=== PATIENT | male | born 1975 | race Caucasian/White ===

== ENCOUNTER 2016-05-10 12:31 | Emergency (ER) | payer SELFPAY ==
[2016-05-10] MEDS ORDERED: HYDROmorphone* 1 MG/ML 1 ML SYR IV ONE (12:51)
[2016-05-10] MEDS ORDERED: LORazepam INJ* 2 MG/ML 1 ML VIAL IV PUSH ONE (12:52)
[2016-05-10] MEDS: NS 0.9% 1000 ML* 2,000 ML IV ONE (12:58)
[2016-05-10 13:16] LABS: Hematocrit 45 % (42-52); Hemoglobin 14.6 g/dl (14.0-18.0); Mean Corpuscular HGB Conc 33 g/dl (31-36); Mean Corpuscular Hemoglobin 27 pg (27-31); Mean Corpuscular Volume 84 fL (80-94); Mean Platelet Volume 10 um3 (7.4-10.4); Red Blood Count 5.36 10^6/ul (4.0-5.4); Red Cell Distribution Width 15 % (10.5-15); White Blood Count 12.9 10^3/ul (3.5-10.8)
[2016-05-10 13:36] LABS: Albumin 4.4 g/dL (3.2-5.2); C Reactive Protein 5.87 mg/L (< 5.00); Calcium 9.6 mg/dL (8.6-10.3); EGFR African American 115.7 (>60); Globulin 3.2 g/dL (2-4); Potassium 4.5 mmol/L (3.5-5.0); Total Bilirubin 0.3 mg/dL (0.2-1.0); Total Protein 7.6 g/dL (6.4-8.9)
--- NOTE | 2016-05-10 14:28 | ED ---
Zoey Hurtado Anna, scribed for Caroline Mcmanus MD on 05/10/16 at 1302 . GI/ HPI - HPI Summary HPI Summary: Patient is a 40 y/o male coming to [facility] presenting with the sudden onset of constant nausea, vomiting and diarrhea that began at 1030 this morning. He additionally has chest pain. Per his fiance, the patient has had a similar episode before. He denies a Hx of diabetes. His history is significant for asthma, GERD, and cyclic vomiting. - History of Current Complaint Chief Complaint: EDAbdPain Stated Complaint: CHEST/ABD PAIN,NAUSEA,VOMITING,DIARRHEA Hx Obtained From: Patient Onset/Duration: Started Hours Ago Timing: Constant Pain Intensity: 10 - /10 Associated Signs and Symptoms: Positive: Vomiting, Diarrhea, Chest Pain - Additional Pertinent History Primary Care Physician: [id number] - Allergy/Home Medications Allergies/Adverse Reactions: Allergies Allergy/AdvReac Type Severity Reaction Status Date / Time Penicillins Allergy Hives Verified 05/10/16 12:33 PMH/Surg Hx/FS Hx/Imm Hx Endocrine/Hematology History: Denies: Hx Diabetes, Hx Sickle Cell Disease Cardiovascular History: Denies: Hx Hypertension, Other Cardiovascular Problems/Disorders Respiratory History: Reports: Hx Asthma - HAS INHLALERS WILL BRING IN GI History: Reports: Hx Gastroesophageal Reflux Disease, Hx Irritable Bowel, Other GI Disorders - cyclic vomiting History: Denies: Hx Renal Disease, Other Problems/Disorders Musculoskeletal History: Denies: Other Musculoskeletal History Sensory History: Reports: Hx Contacts or Glasses Denies: Hx Hearing Aid Opthamlomology History: Reports: Hx Contacts or Glasses Neurological History: Denies: Hx Headaches, Other Neuro Impairments/Disorders Psychiatric History: Reports: Hx Anxiety, Hx Depression - Surgical History Surgery Procedure, Year, and Place: CARPAL TUNNEL LEFT WRIST - 2012 [facility] [place] Hx Anesthesia Reactions: No Infectious Disease History: No Infectious Disease History: Denies: Traveled Outside the [place] in Last 30 Days - Family History Known Family History: Positive: Cardiac Disease, Diabetes - Social History Lives: With Family - with luisitoe Alcohol Use: None Substance Use Type: Reports: Marijuana - last used a week ago Hx Tobacco Use: No Smoking Status (MU): Former Smoker Review of Systems Positive: Chest Pain Positive: Vomiting, Diarrhea, Nausea All Other Systems Reviewed And Are Negative: Yes Physical Exam - Summary Physical Exam Summary: Initially too uncomfortable to examine. Lungs were clear and heart was RRR. See below for PE on re-eval. Triage Information Reviewed: Yes Vital Signs On Initial Exam: Initial Vitals Temp Pulse Resp BP Pulse Ox 95.6 F 92 18 140/115 100 05/10/16 12:33 05/10/16 12:33 05/10/16 12:33 05/10/16 12:33 05/10/16 12:33 Vital Signs Reviewed: Yes Appearance: Positive: Well-Appearing, No Pain Distress Skin: Positive: Warm, Skin Color Reflects Adequate Perfusion, Dry Eyes: Positive: EOMI, RUBIN ENT: Positive: Pharynx normal, TMs normal Neck: Positive: Supple, Nontender Respiratory/Lung Sounds: Positive: Clear to Auscultation, Breath Sounds Present. Negative: Rales, Rhonchi, Wheezes Cardiovascular: Positive: RRR. Negative: Murmur, Rub, Other - gallops Abdomen Description: Positive: Nontender, Soft. Negative: Distended, Guarding, Other: - rebound Bowel Sounds: Positive: Present Musculoskeletal: Positive: Strength/ROM Intact. Negative: Edema Left, Edema Right Neurological: Positive: Normal, Sensory/Motor Intact, Alert, Oriented to Person Place, Time, CN Intact II-III Psychiatric: Positive: Affect/Mood Appropriate Diagnostics - Vital Signs Vital Signs Temp Pulse Resp BP Pulse Ox 05/10/16 12:33 95.6 F 92 18 140/115 100 - Laboratory Lab Results: Lab Results 05/10/16 Range/Units 12:50 POC Glucose (mg/dL) 168 H (74-106) mg/dL Result Diagrams: 05/10/16 12:54 05/10/16 12:54 Lab Statement: Any lab studies that have been ordered have been reviewed, and results considered in the medical decision making process. - EKG 1249 Cardiac Rate: NL - 78 bpm EKG Rhythm: Sinus Rhythm ST Segment: Normal Ectopy: None EKG Interpretation: A lot of artifact 1317 Cardiac Rate: NL - 74 bpm EKG Rhythm: Sinus Rhythm ST Segment: Normal Ectopy: None Re-Evaluation - Re-Evaluation First Eval Re-Evaluation Time: 14:41 Change: Improved Comment: Patient is feeling much better. GIGU Course/Dx - Course Course Of Treatment: 40 yo male with intractable vomiting this am given one dose of dilaudid and ativan with resolution of symptoms - Diagnoses Provider Diagnoses: Intractable vomiting Discharge - Discharge Plan Condition: Stable Disposition: HOME Prescriptions: Metoclopramide TAB* [Reglan TAB*] 10 mg PO Q8H PRN #14 tab PRN Reason: Nausea Patient Education Materials: Metoclopramide (By mouth), Acute Nausea and Vomiting (ED) Referrals: Jose Elias Ansari MD [Primary Care Provider] - Additional Instructions: Follow up with primary care physician within 48 hours. Return to the emergency department for changing or worsening symptoms. The documentation as recorded by the Zoey garcía Anna accurately reflects the service I personally performed and the decisions made by , Caroline Mcmanus MD.
[2016-05-10 14:54] VITALS: BP 111/70
== END 2016-05-10 14:54 | disposition home or self-care (01) ==
LOC: ED 12:31
DX: R11.2 Nausea with vomiting, unspecified (principal); R19.7 Diarrhea, unspecified; R07.9 Chest pain, unspecified; Z87.891 Personal history of nicotine dependence
CPT/HCPCS: 36415; 80053; 83690; 84484; 85025; 86140; 93005; 96374; 96375; 99282; J1170; J2060

== ENCOUNTER 2016-05-10 19:48 | Emergency (ER) | payer SELFPAY ==
[2016-05-10 20:04] VITALS: BP 139/117
== END 2016-05-10 21:44 | disposition left against medical advice (07) ==
LOC: ED 19:48
DX: R11.2 Nausea with vomiting, unspecified (principal); Z53.21 Procedure and treatment not carried out due to patient leaving prior to being seen by health care provider
CPT/HCPCS: 93005

== ENCOUNTER 2016-05-12 14:10 | Emergency (ER) | payer MEDICAID ==
[2016-05-12] MEDS ORDERED: NS 0.9% 1000 ML* 3,000 ML IV ONE (14:18)
[2016-05-12] MEDS ORDERED: LORazepam INJ* 2 MG/ML 1 ML VIAL IV PUSH ONE ×2 (14:18)
[2016-05-12] MEDS ORDERED: Ketorolac INJ* 30 MG/ML 1 ML VIAL IV ONE ×2 (14:18)
[2016-05-12 14:42] LABS: Hematocrit 44 % (42-52); Hemoglobin 14.4 g/dl (14.0-18.0); Mean Corpuscular HGB Conc 33 g/dl (31-36); Mean Corpuscular Hemoglobin 27 pg (27-31); Mean Corpuscular Volume 83 fL (80-94); Mean Platelet Volume 10 um3 (7.4-10.4); Red Blood Count 5.25 10^6/ul (4.0-5.4); Red Cell Distribution Width 14 % (10.5-15); White Blood Count 10.6 10^3/ul (3.5-10.8)
[2016-05-12 14:43] LABS: Add Diff/Slide Review? Slide Review Added; Comments Flag Yes
[2016-05-12] MEDS: NS 0.9% 1000 ML* 3,000 ML IV ONE (14:48)
[2016-05-12 14:57] LABS: ALT 21 U/L (7-52); AST 17 U/L (13-39); Albumin 4.2 g/dL (3.2-5.2); Alkaline Phosphatase 47 U/L (34-104); Anion Gap 10 mmol/L (2-11); BUN/Creatinine Ratio 11.2 (8-20); Blood Urea Nitrogen 11 mg/dL (6-24); C Reactive Protein 5.17 mg/L (< 5.00); CO2 Carbon Dioxide 20 mmol/L (22-32); Calcium 9.2 mg/dL (8.6-10.3); Chloride 104 mmol/L (101-111); EGFR African American 108.9 (>60); EGFR Non-African American 84.7 (>60); Glucose 109 mg/dL (70-100); Lipase < 10 U/L (11.0-82.0); Potassium 3.2 mmol/L (3.5-5.0); Sodium 134 mmol/L (133-145); Total Protein 7.2 g/dL (6.4-8.9)
[2016-05-12 15:30] LABS: Magnesium 1.7 mg/dL (1.9-2.7)
[2016-05-12] MEDS ORDERED: Potassium Chlor TAB* 20 MEQ TAB.ER PO ONE ×2 (15:35)
[2016-05-12] MEDS ORDERED: Magnesium Oxide TAB* 400 MG PO ONE ×2 (15:36)
[2016-05-12] MEDS ORDERED: HYDROmorphone INJ* 1 MG/ML CARPUJECT SYRINGE IV ONE ×2 (15:40)
[2016-05-12] MEDS ORDERED: KCL 20 MEQ/100 ML IVPREMIX* 20 MEQ/100 ML BAG IV SCH (16:00)
--- NOTE | 2016-05-12 16:04 | ED ---
Emilia Hurtado Janilya, scribed for Caroline Mcmanus MD on 05/12/16 at 1447 . Abdominal Pain/Male - HPI Summary HPI Summary: A 40 y/o male was [facility]IB[facility] to [facility] [place] presenting w/ a gradual onset of constant diffuse abd pain for the past couple days. Nothing makes the pain better or worse. Pain severity rated 10/10. In addition, pt also reports vomiting, diarrhea, nausea. - History of Current Complaint Chief Complaint: EDAbdPain Stated Complaint: NAUSEA/VOMITING /DIARRHEA Time Seen by Provider: 05/12/16 14:17 Hx Obtained From: Patient Onset/Duration: Gradual Onset, Lasting Days, Still Present Timing: Constant Severity Initially: Moderate Severity Currently: Moderate Pain Intensity: 10 Pain Scale Used: 0-10 Numeric Location: Diffuse Radiates: No Character: Dull Aggravating Factor(s): Nothing Alleviating Factor(s): Nothing - Allergies/Home Medications Allergies/Adverse Reactions: Allergies Allergy/AdvReac Type Severity Reaction Status Date / Time Penicillins Allergy Hives Verified 05/10/16 12:33 PMH/Surg Hx/FS Hx/Imm Hx Previously Healthy: Yes Endocrine/Hematology History: Denies: Hx Diabetes, Hx Sickle Cell Disease Cardiovascular History: Denies: Hx Hypertension, Other Cardiovascular Problems/Disorders Respiratory History: Reports: Hx Asthma - HAS INHLALERS WILL BRING IN GI History: Reports: Hx Gastroesophageal Reflux Disease, Hx Irritable Bowel, Other GI Disorders - cyclic vomiting History: Denies: Hx Renal Disease, Other Problems/Disorders Musculoskeletal History: Denies: Other Musculoskeletal History Sensory History: Reports: Hx Contacts or Glasses Denies: Hx Hearing Aid Opthamlomology History: Reports: Hx Contacts or Glasses Neurological History: Denies: Hx Headaches, Other Neuro Impairments/Disorders Psychiatric History: Reports: Hx Anxiety, Hx Depression - Surgical History Surgery Procedure, Year, and Place: CARPAL TUNNEL LEFT WRIST - 2012 [facility] [place] Hx Anesthesia Reactions: No Infectious Disease History: No Infectious Disease History: Denies: Traveled Outside the [place] in Last 30 Days - Family History Known Family History: Positive: Cardiac Disease, Diabetes - Social History Alcohol Use: None Substance Use Type: Reports: Marijuana Hx Tobacco Use: No Smoking Status (MU): Former Smoker Review of Systems Positive: Abdominal Pain, Vomiting, Diarrhea, Nausea All Other Systems Reviewed And Are Negative: Yes Physical Exam Triage Information Reviewed: Yes Vital Signs On Initial Exam: Initial Vitals Temp Pulse Resp BP Pulse Ox 100.2 F 68 18 146/85 100 05/12/16 14:28 05/12/16 14:28 05/12/16 14:28 05/12/16 14:28 05/12/16 14:28 Vital Signs Reviewed: Yes Appearance: Positive: Well-Appearing, Pain Distress - mildly uncomfortable Skin: Positive: Warm, Skin Color Reflects Adequate Perfusion, Dry, Other - dry mucous membranes Eyes: Positive: EOMI, RUBIN ENT: Positive: Pharynx normal, TMs normal Neck: Positive: Supple, Nontender Respiratory/Lung Sounds: Positive: Clear to Auscultation, Breath Sounds Present. Negative: Rales, Rhonchi, Wheezes Cardiovascular: Positive: RRR. Negative: Murmur, Rub, Other - no gallops Abdomen Description: Positive: Soft. Negative: Nontender - Diffusely tender, Distended, Guarding, Other: - no rebound Bowel Sounds: Positive: Present Musculoskeletal: Positive: Strength/ROM Intact. Negative: Edema Left, Edema Right Neurological: Positive: Sensory/Motor Intact, Alert, Oriented to Person Place, Time, CN Intact II-III Psychiatric: Positive: Affect/Mood Appropriate - Joana Coma Scale Coma Scale Total: 15 Diagnostics - Vital Signs Vital Signs Temp Pulse Resp BP Pulse Ox 05/12/16 14:30 68 99 05/12/16 14:28 100.2 F 68 18 146/85 100 - Laboratory Lab Results: Lab Results 05/12/16 Range/Units 14:30 WBC 10.6 (3.5-10.8) 10^3/ul RBC 5.25 (4.0-5.4) 10^6/ul Hgb 14.4 (14.0-18.0) g/dl Hct 44 (42-52) % MCV 83 (80-94) fL MCH 27 (27-31) pg MCHC 33 (31-36) g/dl RDW 14 (10.5-15) % Plt Count 196 (150-450) 10^3/ul MPV 10 (7.4-10.4) um3 Neut % (Auto) 90.0 H (38-83) % Lymph % (Auto) 5.4 L (25-47) % [place] % (Auto) 3.3 (1-9) % Eos % (Auto) 0.1 (0-6) % Baso % (Auto) 1.2 (0-2) % Absolute Neuts (auto) 9.5 H (1.5-7.7) 10^3/ul Absolute Lymphs (auto) 0.6 L (1.0-4.8) 10^3/ul Absolute Monos (auto) 0.4 (0-0.8) 10^3/ul Absolute Eos (auto) 0 (0-0.6) 10^3/ul Absolute Basos (auto) 0.1 (0-0.2) 10^3/ul Absolute Nucleated RBC 0 10^3/ul Nucleated RBC % 0 Result Diagrams: 05/12/16 14:30 05/12/16 14:30 Lab Statement: Any lab studies that have been ordered have been reviewed, and results considered in the medical decision making process. Abdominal Pain Fem Course/Dx - Course Course Of Treatment: pt with long history of intractable vomiting here with same better after ativan and pain meds, pt given potassium and magnesium to cody eat home - Diagnoses Provider Diagnoses: Intractable vomiting Discharge - Discharge Plan Condition: Stable Disposition: HOME Prescriptions: LORazepam TAB(*) [Ativan 1 MG TAB (*)] 1 mg PO Q8H PRN #7 tab MDD 3 PRN Reason: Nausea Patient Education Materials: Acute Nausea and Vomiting (ED) Referrals: Jose Elias Ansrai MD [Primary Care Provider] - The documentation as recorded by the Emilia garcía Janilya accurately reflects the service I personally performed and the decisions made by me, Caroline Mcmanus MD.
[2016-05-12 16:05] VITALS: BP 145/87
== END 2016-05-12 16:04 | disposition home or self-care (01) ==
LOC: ED 14:10
DX: R11.2 Nausea with vomiting, unspecified (principal); R10.9 Unspecified abdominal pain; R19.7 Diarrhea, unspecified; Z87.891 Personal history of nicotine dependence
CPT/HCPCS: 36415; 80053; 83690; 83735; 85025; 86140; 96374; 96375; 99284; A9270-GY; J1170; J1885; J2060

== ENCOUNTER 2017-02-25 15:15 | Emergency (ER) | payer MEDICAID, OTHER ==
[2017-02-25 15:28] VITALS: BP 188/95
[2017-02-25] MEDS ORDERED: Lidocaine 1%* 5 ML VIAL ONE (16:10)
[2017-02-25] MEDS ORDERED: Lidocaine 1% INJ* 10 MG/ML 30 ML SDV INJ ONE (16:21)
[2017-02-25] MEDS ORDERED: Tetan/Diph/Pertus SYR(Tdap)* 0.5 ML SYR(BOOSTRIX) use SYR IM ONE (16:33)
[2017-02-25] MEDS ORDERED: Ibuprofen TAB* 800 MG PO ONE (16:33)
--- NOTE | 2017-02-25 18:03 | ED ---
Skin Complaint - HPI Summary HPI Summary: index finger lac - History of Current Complaint Chief Complaint: EDLacSutureRecheck Time Seen by Provider: 02/25/17 15:35 Stated Complaint: RT POINTER FINGER LAC Pain Intensity: 9 - Additional Pertinent History Primary Care Physician: [id number] - Allergy/Home Medications Allergies/Adverse Reactions: Allergies Allergy/AdvReac Type Severity Reaction Status Date / Time Penicillins Allergy Hives Verified 05/10/16 12:33 PMH/Surg Hx/FS Hx/Imm Hx Endocrine/Hematology History: Denies: Hx Diabetes, Hx Sickle Cell Disease Cardiovascular History: Denies: Hx Hypertension, Other Cardiovascular Problems/Disorders Respiratory History: Reports: Hx Asthma - HAS INHLALERS WILL BRING IN GI History: Reports: Hx Gastroesophageal Reflux Disease, Hx Irritable Bowel, Other GI Disorders - cyclic vomiting History: Denies: Hx Renal Disease, Other Problems/Disorders Musculoskeletal History: Denies: Other Musculoskeletal History Sensory History: Reports: Hx Contacts or Glasses Denies: Hx Hearing Aid Opthamlomology History: Reports: Hx Contacts or Glasses Neurological History: Denies: Hx Headaches, Other Neuro Impairments/Disorders Psychiatric History: Reports: Hx Anxiety, Hx Depression - Surgical History Surgery Procedure, Year, and Place: CARPAL TUNNEL LEFT WRIST - 2013 [facility] Hx Anesthesia Reactions: No - Immunization History Date of Tetanus Vaccine: unknown Date of Influenza Vaccine: NO Infectious Disease History: No Infectious Disease History: Denies: Traveled Outside the [place] in Last 30 Days - Family History Known Family History: Positive: Cardiac Disease, Diabetes - Social History Alcohol Use: None Substance Use Type: Reports: Marijuana Hx Tobacco Use: No Smoking Status (MU): Former Smoker Physical Exam Vital Signs On Initial Exam: Initial Vitals Temp Pulse Resp BP Pulse Ox 98.0 F 72 20 188/95 98 02/25/17 15:24 02/25/17 15:24 02/25/17 15:24 02/25/17 15:24 02/25/17 15:24 - Callahan Coma Scale Coma Scale Total: 15 Diagnostics - Vital Signs Vital Signs Temp Pulse Resp BP Pulse Ox 02/25/17 15:24 98.0 F 72 20 188/95 98 - Laboratory Lab Statement: Any lab studies that have been ordered have been reviewed, and results considered in the medical decision making process. Discharge - Discharge Plan Condition: Stable Disposition: HOME Patient Education Materials: Finger Laceration (ED) Referrals: Jose Elias Ansari MD [Primary Care Provider] - Additional Instructions: Keep dressing clean, dry and intact for 48 hours. After this time, you may remove dressing and gently wash with soap and water - rinse well and pat dry then reapply triple antibiotic ointment and clean gauze dressing. Continue daily cleaning until checked by PCP in 10-14 days for suture removal.
--- NOTE | 2017-02-25 18:18 | PN ---
Progress Note - Progress Note Date of Service: 02/25/17 Note: laceration repair by Marivel SWANN 2cm by 1/4cm laceration on left index finger cleaned with 100cc of saline betadaine prep digital block with 1% lidocaine prolene 4-0 4 sutures placed simple closure placed neosporin, telfa and tegaderm on area
== END 2017-02-25 18:22 | disposition home or self-care (01) ==
LOC: ED 15:15
DX: S61.211A Laceration without foreign body of left index finger without damage to nail, initial encounter (principal); X58.XXXA Exposure to other specified factors, initial encounter; Z87.891 Personal history of nicotine dependence; Z23 Encounter for immunization; Z88.0 Allergy status to penicillin
CPT/HCPCS: 12001; 90715; 99282; A9270-GY

== ENCOUNTER 2017-11-25 14:56 | Inpatient (IN) | payer OTHER ==
[2017-11-25] MEDS ORDERED: Ciprofloxacin 400MG IVPREMIX(* 400 MG/200 ML BAG IVPB ONE (15:30)
[2017-11-25] MEDS ORDERED: Ketorolac INJ* 30 MG/ML 1 ML VIAL IV ONE (15:30)
[2017-11-25] MEDS ORDERED: NS 0.9% 1000 ML*IV.FLUID IV ONE (15:30)
[2017-11-25] MEDS ORDERED: Ondansetron INJ* 2 MG/ML VIAL ONE (15:44)
[2017-11-25 15:45] LABS: ABS Basophils 0 10^3/ul (0-0.2); ABS Eosinophils 0 10^3/ul (0-0.6); ABS Lymphocytes 1.1 10^3/ul (1.0-4.8); ABS Monocytes 0.6 10^3/ul (0-0.8); ABS Neutrophils 15.7 10^3/ul (1.5-7.7); ABS Nucleated RBC 0 10^3/ul; Eosinophil % 0.1 % (0-6); Hematocrit 42 % (42-52); Hemoglobin 13.8 g/dl (14.0-18.0); Lymphocyte % 6.5 % (25-47); Mean Corpuscular HGB Conc 33 g/dl (31-36); Mean Corpuscular Hemoglobin 28 pg (27-31); Mean Corpuscular Volume 84 fL (80-94); Mean Platelet Volume 8.9 um3 (7.4-10.4); Nucleated Red Blood Cells % 0; Platelet Count 175 10^3/ul (150-450); Red Blood Count 4.96 10^6/ul (4.00-5.40); Red Cell Distribution Width 15 % (10.5-15); White Blood Count 17.5 10^3/ul (3.5-10.8)
[2017-11-25] MEDS ORDERED: Ondansetron INJ* 2 MG/ML VIAL IV ONE (15:47)
[2017-11-25 15:55] LABS: INR 1.14 (0.77-1.02)
[2017-11-25] MEDS ORDERED: Morphine INJ** 4 MG/ML 1 ML CARPUJECT IV ONE (16:01)
[2017-11-25] MEDS ORDERED: Morphine INJ* 4 MG/ML 1 ML SYRINGE (NEW SYRINGE VERSION) ONE (16:02)
[2017-11-25 16:11] LABS: EGFR Non-African American 73.4 (>60)
[2017-11-25] MEDS ORDERED: Iohexol 300* (CONTRAST) 10 ML SDV IV ONE (16:26)
--- NOTE | 2017-11-25 16:29 | RAD ---
INDICATION: Back and abdominal pain COMPARISON: Most recent comparison chest x-rays dated January 09, 2016 TECHNIQUE: Single AP portable view of the chest was obtained. FINDINGS: Image quality is compromised due to the relative inferiority of a portable chest x-ray. The heart and mediastinum exhibit normal size and contour. The lungs are grossly clear. There is no evidence of a large pleural effusion. Visualized bones are normal for the patient's age. IMPRESSION: No radiographic evidence for acute cardiopulmonary abnormality on this portable chest x-ray.
[2017-11-25 16:51] LABS: Urine Appearance Cloudy; Urine Blood Negative (Negative); Urine Color Amber; Urine Ketones 2+ (Negative); Urine Protein 2+(100 mg/dL) (Negative); Urine Red Blood Cell Absent (Absent); Urine Specific Gravity 1.028 (1.010-1.030); Urine Urobilinogen Positive (Negative); Urine White Blood Cell 3+(>20/hpf) (Absent)
--- NOTE | 2017-11-25 17:20 | ED ---
Abdominal Pain/Male - HPI Summary HPI Summary: Patient is a 42-year-old male with history of IBS and one UTI several years ago presenting to the ED from Dr. Owen's office with fevers, sweats, chills, severe back pain, left-sided groin pain without pain to the testicle. He endorses dysuria, frequency and urgency. No history of kidney stones, pyelonephritis. He states approximate 2 days ago he developed pain to his left groin which radiated over into the left scrotal area then became very painful to the bilateral flanks. He then subsequently developed a fever and states he has been very diaphoretic with chills and has had shaking episodes over the past 2 days. - History of Current Complaint Chief Complaint: EDFlankPain Stated Complaint: BACK PAIN/ABD PAIN/NAUSEA Time Seen by Provider: 11/25/17 15:30 Hx Obtained From: Patient Onset/Duration: Sudden Onset Timing: Constant Severity Initially: Severe Severity Currently: Severe Pain Intensity: 10 Pain Scale Used: 0-10 Numeric Location: Groin, Flank Radiates: No Radiates to: Flank Aggravating Factor(s): Nothing Alleviating Factor(s): Nothing Associated Signs And Symptoms: Positive: Diaphoresis, Fever - Risk Factors Testicular Torsion: Negative Cardiac Risk Factors: Negative - Allergies/Home Medications Allergies/Adverse Reactions: Allergies Allergy/AdvReac Type Severity Reaction Status Date / Time Penicillins Allergy Hives Verified 11/25/17 15:03 PMH/Surg Hx/FS Hx/Imm Hx Previously Healthy: Yes Endocrine/Hematology History: Denies: Hx Anticoagulant Therapy, Hx Blood Disorders, Hx Diabetes, Hx Sickle Cell Disease Cardiovascular History: Denies: Hx Hypertension, Other Cardiovascular Problems/Disorders Respiratory History: Reports: Hx Asthma - HAS INHLALERS WILL BRING IN GI History: Reports: Hx Gastroesophageal Reflux Disease, Hx Irritable Bowel, Other GI Disorders - cyclic vomiting History: Denies: Hx Renal Disease, Other Problems/Disorders Musculoskeletal History: Denies: Other Musculoskeletal History Sensory History: Reports: Hx Contacts or Glasses Denies: Hx Hearing Aid Opthamlomology History: Reports: Hx Contacts or Glasses Neurological History: Denies: Hx Headaches, Other Neuro Impairments/Disorders Psychiatric History: Reports: Hx Anxiety, Hx Depression - Surgical History Surgery Procedure, Year, and Place: CARPAL TUNNEL LEFT WRIST - [place] [facility] [place]x Anesthesia Reactions: No - Immunization History Date of Tetanus Vaccine: unknown Date of Influenza Vaccine: NO Hx Pertussis Vaccination: No Immunizations Up to Date: Yes Infectious Disease History: No Infectious Disease History: Denies: Hx of Known/Suspected MRSA, Traveled Outside the [place] in Last 30 Days - Family History Known Family History: Positive: Cardiac Disease, Diabetes - Social History Occupation: Employed Full-time Lives: With Family Alcohol Use: None Hx Substance Use: Yes Substance Use Type: Reports: Marijuana Hx Tobacco Use: No - not currently Smoking Status (MU): Current Every Day Smoker Review of Systems Constitutional: Negative Negative: Fever, Chills, Fatigue, Skin Diaphoresis Negative: Palpitations, Chest Pain Negative: Shortness Of Breath, Cough Positive: Abdominal Pain, Nausea. Negative: Vomiting, Diarrhea Positive: see HPI, burning, dysuria, frequency, flank pain, pain, urgency. Negative: discharge Negative: Arthralgia, Myalgia Skin: Negative Neurological: Negative All Other Systems Reviewed And Are Negative: Yes Physical Exam Triage Information Reviewed: Yes Vital Signs On Initial Exam: Initial Vitals Temp Pulse Resp BP Pulse Ox 101.4 F 114 20 141/103 100 11/25/17 14:59 11/25/17 14:59 11/25/17 14:59 11/25/17 14:59 11/25/17 14:59 Vital Signs Reviewed: Yes Appearance: Positive: Ill-Appearing Skin: Positive: Diaphoretic Head/Face: Positive: Normal Head/Face Inspection Eyes: Positive: EOMI, RUBIN, Conjunctiva Clear Neck: Positive: Supple, No Lymphadenopathy Respiratory/Lung Sounds: Positive: Clear to Auscultation, Breath Sounds Present Cardiovascular: Positive: RRR, Pulses are Symmetrical in both Upper and Lower Extremities Abdomen Description: Positive: Other: - Tenderness throughout all quadrants, worse to the left lower quadrant. CVA tenderness bilaterally. Male Genital Exam: Positive: Other - Unable to assess prostate, scrotal tenderness to the left side, however unable to palpate the epididymis due to pain. Musculoskeletal: Positive: Strength/ROM Intact Neurological: Positive: Sensory/Motor Intact, Alert, Oriented to Person Place, Time, Speech Normal Psychiatric: Positive: Affect/Mood Appropriate AVPU Assessment: Alert Diagnostics - Vital Signs Vital Signs Temp Pulse Resp BP Pulse Ox 11/25/17 16:06 16 11/25/17 14:59 101.4 F 114 20 141/103 100 - Laboratory Lab Results: Lab Results 11/25/17 11/25/17 11/25/17 Range/Units 15:31 15:31 15:31 WBC 17.5 H (3.5-10.8) 10^3/ul RBC 4.96 (4.00-5.40) 10^6/ul Hgb 13.8 L (14.0-18.0) g/dl Hct 42 (42-52) % MCV 84 (80-94) fL MCH 28 (27-31) pg MCHC 33 (31-36) g/dl RDW 15 (10.5-15) % Plt Count 175 (150-450) 10^3/ul MPV 8.9 (7.4-10.4) um3 Neut % (Auto) 89.6 H (38-83) % Lymph % (Auto) 6.5 L (25-47) % [place] % (Auto) 3.6 (0-7) % Eos % (Auto) 0.1 (0-6) % Baso % (Auto) 0.2 (0-2) % Absolute Neuts (auto) 15.7 H (1.5-7.7) 10^3/ul Absolute Lymphs (auto) 1.1 (1.0-4.8) 10^3/ul Absolute Monos (auto) 0.6 (0-0.8) 10^3/ul Absolute Eos (auto) 0 (0-0.6) 10^3/ul Absolute Basos (auto) 0 (0-0.2) 10^3/ul Absolute Nucleated RBC 0 10^3/ul Nucleated RBC % 0 ESR Pending INR (Anticoag Therapy) 1.14 H (0.77-1.02) APTT 30.3 (26.0-36.3) seconds Sodium 136 (135-145) mmol/L Potassium 3.6 (3.5-5.0) mmol/L Chloride 104 (101-111) mmol/L Carbon Dioxide 20 L (22-32) mmol/L Anion Gap 12 H (2-11) mmol/L BUN 15 (6-24) mg/dL Creatinine 1.10 (0.67-1.17) mg/dL Est GFR ( Amer) 88.8 (>60) Est GFR (Non-Af Amer) 73.4 (>60) BUN/Creatinine Ratio 13.6 (8-20) Glucose 106 H (70-100) mg/dL Lactic Acid (0.5-2.0) mmol/L Calcium 9.4 (8.6-10.3) mg/dL Total Bilirubin 1.30 H (0.2-1.0) mg/dL AST 20 (13-39) U/L ALT 24 (7-52) U/L Alkaline Phosphatase 52 (34-104) U/L Troponin I 0.00 (<0.04) ng/mL C-Reactive Protein 186.24 H (<8.01) mg/L Total Protein 7.5 (6.4-8.9) g/dL Albumin 4.6 (3.2-5.2) g/dL Globulin 2.9 (2-4) g/dL Albumin/Globulin Ratio 1.6 (1-3) Prostate Specific Ag 32.580 H (0-4.000) ng/mL Urine Color Urine Appearance Urine pH (5-9) Ur Specific [place] (1.010-1.030) Urine Protein (Negative) Urine Ketones (Negative) Urine Blood (Negative) Urine Nitrate (Negative) Urine Bilirubin (Negative) Urine Urobilinogen (Negative) Ur Leukocyte Esterase (Negative) Urine WBC (Auto) (Absent) Urine RBC (Auto) (Absent) Ur Squamous Epith Cells (Absent) Urine Bacteria (Absent) Urine Glucose (Negative) 11/25/17 11/25/17 Range/Units 15:31 16:30 WBC (3.5-10.8) 10^3/ul RBC (4.00-5.40) 10^6/ul Hgb (14.0-18.0) g/dl Hct (42-52) % MCV (80-94) fL MCH (27-31) pg MCHC (31-36) g/dl RDW (10.5-15) % Plt Count (150-450) 10^3/ul MPV (7.4-10.4) um3 Neut % (Auto) (38-83) % Lymph % (Auto) (25-47) % [place] % (Auto) (0-7) % Eos % (Auto) (0-6) % Baso % (Auto) (0-2) % Absolute Neuts (auto) (1.5-7.7) 10^3/ul Absolute Lymphs (auto) (1.0-4.8) 10^3/ul Absolute Monos (auto) (0-0.8) 10^3/ul Absolute Eos (auto) (0-0.6) 10^3/ul Absolute Basos (auto) (0-0.2) 10^3/ul Absolute Nucleated RBC 10^3/ul Nucleated RBC % ESR INR (Anticoag Therapy) (0.77-1.02) APTT (26.0-36.3) seconds Sodium (135-145) mmol/L Potassium (3.5-5.0) mmol/L Chloride (101-111) mmol/L Carbon Dioxide (22-32) mmol/L Anion Gap (2-11) mmol/L BUN (6-24) mg/dL Creatinine (0.67-1.17) mg/dL Est GFR ( Amer) (>60) Est GFR (Non-Af Amer) (>60) BUN/Creatinine Ratio (8-20) Glucose (70-100) mg/dL Lactic Acid 0.9 (0.5-2.0) mmol/L Calcium (8.6-10.3) mg/dL Total Bilirubin (0.2-1.0) mg/dL AST (13-39) U/L ALT (7-52) U/L Alkaline Phosphatase (34-104) U/L Troponin I (<0.04) ng/mL C-Reactive Protein (<8.01) mg/L Total Protein (6.4-8.9) g/dL Albumin (3.2-5.2) g/dL Globulin (2-4) g/dL Albumin/Globulin Ratio (1-3) Prostate Specific Ag (0-4.000) ng/mL Urine Color Emiliana Urine Appearance Cloudy Urine pH 8.0 (5-9) Ur Specific [place] 1.028 (1.010-1.030) Urine Protein 2+(100 mg/dl) A (Negative) Urine Ketones 2+ A (Negative) Urine Blood Negative (Negative) Urine Nitrate Negative (Negative) Urine Bilirubin 1+ A (Negative) Urine Urobilinogen Positive A (Negative) Ur Leukocyte Esterase 2+ A (Negative) Urine WBC (Auto) 3+(>20/hpf) A (Absent) Urine RBC (Auto) Absent (Absent) Ur Squamous Epith Cells Present A (Absent) Urine Bacteria Absent (Absent) Urine Glucose Negative (Negative) Result Diagrams: 11/27/17 07:30 11/27/17 07:30 Lab Statement: Any lab studies that have been ordered have been reviewed, and results considered in the medical decision making process. Abdominal Pain Fem Course/Dx - Course Course Of Treatment: during the course of treatment, the patient is evaluated for a possible pyelonephritis versus prostatitis. He endorses pain to the left scrotal region, left groin region and bilateral flanks, worse to the left side. He states the pain is severe rating it a 10/10, constant throbbing. On arrival he is diaphoretic and ill-appearing. He is given ceftriaxone in the ED and pain management. Discussed case with hospitalist and patient will be admitted for sepsis secondary to either prostatitis or pyelonephritis. PSA antigen is elevated. - Diagnoses Differential Diagnosis/HQI/PQRI: Ureteral Stone, Urinary Tract Infection Provider Diagnoses: UTI (urinary tract infection) Discharge - Sign-Out/Discharge Documenting (check all that apply): Patient Departure - Discharge Plan Condition: Fair Disposition: ADMITTED TO [facility] - Billing Disposition and Condition Condition: FAIR Disposition: Admitted to [facility]
--- NOTE | 2017-11-25 17:21 | RAD ---
CLINICAL HISTORY: Back pain, abdominal pain and nausea COMPARISON: Similar examination dated January 09, 2000 TECHNIQUE: Noncontrast CT examination of the abdomen and pelvis from the lung bases through the initial tuberosities. FINDINGS: Unless otherwise specified comparisons below reference the January 09, 2016 CT examination. VISUALIZED LUNG BASES: The visualized lung bases are grossly clear. There is no pleural effusion. ABDOMEN AND PELVIS: Evaluation of the solid organs and vasculature is limited without intravenous contrast. The liver, spleen, pancreas and adrenal glands are grossly normal in appearance. The gallbladder is normal. At the upper pole of the right kidney there is a 4 mm nonobstructing renal calculus. At the posterior cortex of the left kidney, there is a 2 cm low-attenuation structure corresponding to the cyst seen on the previous CT examination. There is no hydronephrosis bilaterally. There are no definite renal calculi identified in either ureter or in the mostly decompressed urinary bladder. Evaluation of the gastrointestinal tract is limited without oral contrast. The small and large bowel are not distended.The patient's normal appendix is identified in the right lower quadrant measuring 6 mm in diameter (axial image 97). There is no gross retroperitoneal or mesenteric lymphadenopathy. The pelvic viscera is normal in appearance. The abdominal aorta and iliac arteries are normal in course and diameter. Degenerative changes include multilevel loss of intervertebral disc height involving the lower thoracic and lumbar spine.There are no sinister bone lesions. IMPRESSION: 1. There is a nonobstructing 4 mm calcification in the right collecting system without signs of obstructive uropathy bilaterally. 2. No evidence of inflammatory change of the gastrointestinal tract within the limitations of a noncontrast CT examination.
[2017-11-25] MEDS ORDERED: cefTRIAXone(*) 1 GM in NS 0.9% 50 ML* 50 ML IVPB ONE ×2 (17:27→18:09)
[2017-11-25] MEDS ORDERED: NS 0.9% 1000 ML* 2,000 ML IV ONE (18:08)
[2017-11-25] MEDS ORDERED: Gentamicin ADULT (*) 40 MG/ML VIAL IVPB ONE (18:09)
[2017-11-25] MEDS ORDERED: Gentamicin ADULT per pharmacy 1 NOTE MISC FOLLOW UP PRN (18:12)
[2017-11-25] MEDS ORDERED: Al Hydrox/Mg Hydrox/Simet LIQ* 30 ML UDC PO PRN (18:20)
[2017-11-25] MEDS ORDERED: oxyCODONE/Acetamin 5/325 MG* TAB PO PRN (18:20)
[2017-11-25] MEDS ORDERED: Ondansetron INJ* 2 MG/ML VIAL IV PRN (18:20)
[2017-11-25] MEDS ORDERED: Albuterol 2.5 MG/3 ML NEB.SOL* (0.083%) INH PRN (18:20)
[2017-11-25] MEDS ORDERED: cefTRIAXone(*) 1 GM ADVAN/BAG ONE (18:23)
[2017-11-25] MEDS ORDERED: LORazepam TAB(*) 1 MG PO PRN (18:24)
[2017-11-25] MEDS ORDERED: Ketorolac INJ* 30 MG/ML 1 ML VIAL IV PUSH PRN (18:25)
--- NOTE | 2017-11-25 18:48 | RAD ---
EXAM: US Scrotum CLINICAL HISTORY: 42 years old, male; Pain; Flank pain and groin pain; Additional info: Testicular pain, R/O torsion TECHNIQUE: Real-time ultrasound of the scrotum with color Doppler and image documentation. COMPARISON: No relevant prior studies available. FINDINGS: Right testicle: The right testicle measures 4.4 x 1.9 x 2.8 cm. Normal arterial waveforms. No mass. No torsion. Left testicle: The left testicle measures 4.5 x 1.7 x 2.5 cm and contains a tiny microcalcification inferior lie. Normal arterial waveforms. No mass. No torsion. Epididymides: The right epididymal head measures 0.9 x 1.2 cm. The left epididymal head measures 0.7 x 1.1 cm. Scrotum: Unremarkable. IMPRESSION: 1. No acute findings. No evidence of testicular torsion. However, please note that partial or intermittent torsion may be sonographically normal. 2. Tiny left testicular calcification.. To contact [facility] with a general question: [facility] - [phone] For direct physician to physician contact: Physician Hotline - [phone] [facility] ([facility] Facility ID #[id number])
[2017-11-25] MEDS ORDERED: Gentamicin ADULT (*) 160 MG in NS 0.9% 100 ML* 100 ML IVPB ONE (19:30)
[2017-11-25] MEDS: Mometasone/Formoter 200/5 MDI INH SCH (20:16)
[2017-11-25] MEDS: NS 0.9% 1000 ML* 1,000 ML IV SCH (20:29)
[2017-11-25] MEDS: CMC: Pantoprazole TAB (NF) 40 MG TAB PO SCH (20:33)
[2017-11-25] MEDS: Morphine INJ* 4 MG/ML 1 ML SYRINGE (NEW SYRINGE VERSION) IV PRN (20:39)
--- NOTE | 2017-11-25 22:37 | HP ---
CC: Dr. Ansari; Dr. Grady* ADMISSION HISTORY AND PHYSICAL: DATE OF ADMISSION: 11/25/17 ADMITTING HOSPITALIST: Dr. Shelia Nazario.* (DICTATED BY HUE TUTTLE) PRIMARY CARE PROVIDER: Dr. Ansari. CONSULTING UROLOGIST: Dr. Ahmet Grady. CHIEF COMPLAINT: Scrotal and bilateral flank pain. HISTORY OF PRESENT ILLNESS: Mr. Drew is a 42-year-old gentleman with past medical history significant for sarcoidosis, GERD, and IBS as well as asthma and migraine headache, who presented to the emergency room earlier today with complaints of acute onset of bilateral groin and bilateral flank pain since yesterday. The patient notes that he was in his usual state of health until yesterday evening when he started having a sudden onset of left groin pain that seemed to be more localized to his scrotal area and radiated to his back. He also had associated urinary symptoms with dysuria, frequency, and urgency all night and all day today. He noticed that pain radiates to both flanks and also to his lower back. He denied any history of nephrolithiasis or similar complaints in the past. He denied any history of STDs. The pain has gotten to the point that he could not complete a shift at work and also had associated fever and sweating for which he presented to emergency room for further evaluation. His vital signs showed that he had fever of 101.4 upon presentation as well as a tachycardia with heart rate of 94. The patient had laboratory workup that revealed leukocytosis with white count of 17,000 and elevated CRP of 186. The patient met sepsis criteria for which he had an aggressive IV fluid hydration in the emergency room then had a CT scan of the abdomen and pelvis that revealed no evidence of pyelonephritis. Given his ongoing symptoms, we were asked to see the patient for further evaluation and to consider admission for sepsis. I asked the patient in more details about his symptoms and he told me that his pain is more localized to his left testicle more than the right with "cord-like sensation" to the left side. Given the onset of his symptoms and the findings of that cord-like sensation, we went on and ordered an ultrasound of the testicles to rule out any testicular torsion. After given narcotics and Zofran, the patient reports feeling slightly better. He was anxious and tells me that he has family history of prostate cancer. He denied any similar complaints in the past. PAST MEDICAL HISTORY: As mentioned above significant for: 1. Sarcoidosis. 2. GERD. 3. Hemorrhoids with rectal bleeding in the past. 4. History of polysubstance abuse. 5. IBS, predominantly constipation type. 6. Asthma. 7. Migraine headaches. PAST SURGICAL HISTORY: None. CURRENT MEDICATIONS: His medications at home include: 1. Celexa 40 mg p.o. daily. 2. Dicyclomine 40 mg p.o. b.i.d. 3. Advair Diskus 500/50 one puff inhaled b.i.d. 4. Omeprazole 20 mg p.o. b.i.d. 5. Ativan 1 mg p.o. q.8 hours as needed for anxiety. ALLERGIES: He described reaction to PENICILLIN in sort of hives, but denied any difficulty breathing after taking PENICILLIN products. FAMILY HISTORY: Significant for prostate cancer in his father's side as well as diabetes. SOCIAL HISTORY: The patient is a smoker, smokes half a pack per day for 14 years. Denies alcohol intake or illicit drug use. He is and he listed his as a healthcare proxy and wishes to be a full code. REVIEW OF SYSTEMS: See HPI. Otherwise, 12-point of review of systems was examined and they were essentially negative. PHYSICAL EXAMINATION GENERAL: He is a healthy-appearing, middle-aged gentleman in no acute distress or discomfort at the time of admission. VITAL SIGNS: Most recent set of vitals with temperature of 99.5, heart rate of 94, blood pressure 116/72, respirations of 18 with O2 sat of 98% on room air. HEENT: Head is normocephalic, atraumatic. Sclerae anicteric. PERRLA. EOMs intact. Oropharynx is pink and moist. NECK: Supple. Trachea midline. No cervical adenopathy or thyromegaly. LUNGS: Clear to auscultation bilaterally. HEART: Regular rate and rhythm. Normal S1 and S2 without rubs, murmurs or gallops. BACK: Normal curvature. No CVA tenderness. ABDOMEN: Soft and nondistended. There is mild suprapubic tenderness on the above patient noted. There is no guarding, rigidity, or rebound tenderness. GENITAL: Exam revealed normal circumcised male. No penile discharge noted. No lesions or rashes on the glans of the penis. Scrotum with 2 testicles present. There is a moderate tenderness to both testicles more prominent on the left side. Pain appeared to be more prominent on the posterior aspect on top of the epididymis. There is no bag of worms sensation upon palpation of the epididymis. EXTREMITIES: Without cyanosis, clubbing or edema. RECTAL: Exam not done today. Would be contraindicated in the possible setting of acute prostatitis. NEUROLOGIC: He is awake, alert, and oriented x3. Tongue is midline. Hand manager service desk is equal bilaterally and cranial nerves II through XII are intact. DIAGNOSTIC STUDIES/LAB DATA: Laboratory workup: CBC with white count of 17, 500, hemoglobin 13.8, hematocrit of 42, platelets of 175. His ESR is 10. INR is 1.1. Chemistry panel with sodium of 136, potassium 3.6, chloride 104, CO2 of 20, BUN 15, and creatinine 1.1. His glucose is 106. Lactic acid 0.9. LFTs within normal limits. CRP elevated at 186 and PSA elevated at 32.5. Accessory diagnostic data: CT scan of the abdomen and pelvis with nonobstructing 4- mm stone and no evidence of pyelonephritis. Testicular ultrasound also done revealing no evidence of testicular torsion. IMPRESSION AND PLAN: A 42-year-old gentleman with past medical history of gastroesophageal reflux disease, sarcoidosis, irritable bowel syndrome, and history of polysubstance abuse, who presents to the emergency room with abrupt onset of scrotal bilateral flank pain with associated fever, tachycardia, found to be septic and will be admitted under hospitalist services for the following assessment and plan: 1. Acute prostatitis. The patient's signs and symptoms set the picture for acute prostatitis; however, the actual etiology is still unknown. Gonococcal and Chlamydia cultures are pending at this time. I did touch base with Dr. Grady, who will see the patient in consultation and he advised to give an extra gram of ceftriaxone in addition to the 1 g he already had in the emergency room , also added 160 mg of gentamicin. He will continue dual antibiotics with gram negative coverage with 2 g of Rocephin every day as well as gentamicin in the pharmacy protocol every 12 hours. We will provide pain management with morphine , Toradol, and Percocet as needed. Give him Tylenol for symptomatic management of fever. He does meet criteria for sepsis and receive the adequate IV fluid hydration and I will continue to hydrate him. His sonogram revealed no evidence of testicular torsion; however, I have a suspicion for epididymitis as well given his presentation and the exam finding. 2. Sepsis. The patient meets sepsis criteria with tachycardia, leukocytosis, and fever. He received adequate IV fluid bolus and will continue normal saline as well as p.o. fluid intake. He appears to be comfortable at the time of admission and we will keep monitor him at the telemetry unit overnight. Blood cultures and urine cultures are pending at this time. It is to be noted the Florez catheter insertion and digital rectal exam will be contraindicated on the setting of acute prostatitis until proven otherwise. 3. History of asthma. I will continue the patient on his Advair Diskus. 4. Chronic pain. The patient will continue his citalopram and also will utilize pain medication as needed. 5. Gastroesophageal reflux disease. I will continue his PPI coverage. 6. Depression. I will continue his citalopram per home dose. 7. DVT prophylaxis. The patient is low risk and he will ambulate ad laura. 8. Code status. He wishes to be a full code. 9. Disposition. Admit to hospitalist services. Awaiting Urology consultation in the morning likely a treatment of acute prostatitis, possible pyelonephritis , possible urinary tract infection, and epididymitis, pending on urine and blood culture. The patient meets sepsis criteria. Will continue aggressive hydration and antibiotics per Urology recommendation, and will follow him up accordingly. TIME SPENT: Approximately 60 minutes were spent admitting this patient for which greater than 50% of that time on taking history and performing physical exam. I went on and discussed the case with my attending who agreed to plan of care and will follow him up accordingly. HUE TUTTLE [id number]/[facility] #: [id number] ELLEN
[2017-11-26] MEDS: NS 0.9% 1000 ML* 1,000 ML IV SCH ×3 (03:16→16:41)
[2017-11-26 06:24] LABS: ABS Basophils 0.1 10^3/ul (0-0.2); ABS Eosinophils 0.1 10^3/ul (0-0.6); ABS Lymphocytes 0.9 10^3/ul (1.0-4.8); ABS Monocytes 0.9 10^3/ul (0-0.8); ABS Neutrophils 10.1 10^3/ul (1.5-7.7); ABS Nucleated RBC 0 10^3/ul; Eosinophil % 1.1 % (0-6); Hematocrit 34 % (42-52); Hemoglobin 11.3 g/dl (14.0-18.0); Lymphocyte % 7.4 % (25-47); Mean Corpuscular HGB Conc 33 g/dl (31-36); Mean Corpuscular Hemoglobin 28 pg (27-31); Mean Corpuscular Volume 86 fL (80-94); Nucleated Red Blood Cells % 0; Platelet Count 115 10^3/ul (150-450); Red Blood Count 4.02 10^6/ul (4.00-5.40); Red Cell Distribution Width 15 % (10.5-15); White Blood Count 12.2 10^3/ul (3.5-10.8)
[2017-11-26] MEDS: Morphine INJ* 4 MG/ML 1 ML SYRINGE (NEW SYRINGE VERSION) IV PRN ×2 (06:32→20:08)
[2017-11-26 06:49] LABS: EGFR Non-African American 91.4 (>60)
[2017-11-26] MEDS: Mometasone/Formoter 200/5 MDI INH SCH ×2 (08:03→20:03)
[2017-11-26] MEDS ORDERED: Mouth Piece, Nicotine* 1 EACH CARTRIDGE INH PRN (08:37)
[2017-11-26] MEDS ORDERED: Nicotine Inhaler* 10 MG AMP INH PRN (08:37)
[2017-11-26] MEDS ORDERED: Gentamicin ADULT per pharmacy 1 NOTE MISC FOLLOW UP SCH ×2 (09:00→10:00)
[2017-11-26] MEDS: Citalopram TAB* 40 MG PO SCH (09:27)
[2017-11-26] MEDS: CMC: Pantoprazole TAB (NF) 40 MG TAB PO SCH ×2 (09:28→20:08)
[2017-11-26] MEDS: Nicotine PATCH 14 MG/24 HR* PATCH TRANSDERM SCH (09:29)
[2017-11-26] MEDS: Gentamicin ADULT (*) 160 MG in NS 0.9% 100 ML* 100 ML IVPB SCH ×2 (10:02→20:09)
--- NOTE | 2017-11-26 14:08 | PN ---
Subjective Date of Service: 11/26/17 Interval History: HOSPITALIST PROGRESS NOTE Patient seen and examined at bedside. Care reviewed and d/w Salena Winslow RN. He feels better today. Still has back pain, but inguinal/testicular pain is much improved. Appetite is returning, denies N/V. Dysuria is also less intense. Family History: Unchanged from Admission Social History: Unchanged from Admission Past Medical History: Unchanged from Admission Objective Active Medications: Acetaminophen (Tylenol Tab*) 650 mg PO Q4H PRN PRN Reason: FEVER/PAIN Al Hydrox/Mg Hydrox/Simethicone (Maalox Plus*) 30 ml PO Q6H PRN PRN Reason: INDIGESTION Albuterol (Ventolin 2.5 Mg/3 Ml Neb.Clarita*) 2.5 mg INH [id number] AWAKE PRN PRN Reason: sob/wheezing Citalopram Hydrobromide (Celexa Tab*) 40 mg PO DAILY [facility] Last Admin: 11/26/17 09:27 Dose: 40 mg Device (Nicotine Mouth Piece*) 1 each INH .USE WITH NICOTROL PRN PRN Reason: CRAVING Last Admin: 11/26/17 09:32 Dose: 1 each Ceftriaxone Sodium 2 gm/ (Sodium Chloride) 100 mls @ 200 mls/hr IVPB Q24H [facility] Sodium Chloride (Ns 0.9% 1000 Ml*) 1,000 mls @ 150 mls/hr IV PER RATE [facility] Last Admin: 11/26/17 09:29 Dose: 150 mls/hr Gentamicin Sulfate 160 mg/ (Sodium Chloride) 104 mls @ 208 mls/hr IVPB Q12H [facility] Last Admin: 11/26/17 10:02 Dose: 208 mls/hr Ketorolac Tromethamine (Toradol Inj*) 30 mg IV PUSH Q6H PRN PRN Reason: PAIN Stop: 11/30/17 18:24 Last Admin: 11/26/17 12:55 Dose: 30 mg Lorazepam (Ativan Tab(*)) 1 mg PO Q8H PRN PRN Reason: ANXIETY Mometasone Furoate/Formoterol Fumar (Dulera 200/5 Mdi*) 2 puff INH BID [facility] Last Admin: 11/26/17 08:03 Dose: 2 puff Morphine Sulfate (Morphine Inj (Syringe)*) 2 mg IV Q1H PRN PRN Reason: PAIN - SEVERE Last Admin: 11/26/17 06:32 Dose: 2 mg Nicotine (Nicotine Inhaler*) 10 mg INH Q2H PRN PRN Reason: CRAVING Last Admin: 11/26/17 09:33 Dose: 10 mg Nicotine (Nicotine Patch 14 Mg/24 Hr*) 1 patch TRANSDERM DAILY [facility] Last Admin: 11/26/17 09:29 Dose: 1 patch Nicotine Polacrilex (Nicotine Gum*) 2 mg PO Q2H PRN PRN Reason: CRAVING Ondansetron HCl (Zofran Inj*) 4 mg IV Q4H PRN PRN Reason: NAUSEA/VOMITING Oxycodone/Acetaminophen (Percocet 5/325 Tab*) 2 tab PO Q4H PRN PRN Reason: Pain Last Admin: 11/26/17 03:14 Dose: 2 tab Pantoprazole Sodium (Protonix Tab (Nf)) 40 mg PO BID [facility] Last Admin: 11/26/17 09:28 Dose: 40 mg Pharmacy Consult (Gentamicin Adult Per Pharmacy) 1 note FOLLOW UP .PER PROTOCOL [facility] Pharmacy Profile Note (Gentamicin Trough Level) 1 note FOLLOW UP ONCE ONE Stop: 11/27/17 08:01 Pharmacy Profile Note (Gentamicin Peak Level*) 1 note FOLLOW UP ONCE ONE Stop: 11/27/17 09:31 Vital Signs - 8 hr 11/26/17 11/26/17 11/26/17 06:32 08:13 09:31 Temperature 97.9 F Pulse Rate 60 Respiratory 16 16 18 Rate Blood Pressure 101/64 (mmHg) O2 Sat by Pulse 94 Oximetry 11/26/17 12:10 Temperature 98.2 F Pulse Rate 65 Respiratory 16 Rate Blood Pressure 105/67 (mmHg) O2 Sat by Pulse 99 Oximetry Oxygen Devices in Use Now: None Appearance: Pleasant gentleman sitting up in bed in NAD. Eyes: No Scleral Icterus Ears/Nose/Mouth/Throat: Mucous Membranes Moist Neck: Trachea Midline Respiratory: Symmetrical Chest Expansion and Respiratory Effort, Clear to Auscultation Cardiovascular: RRR - Normal S1 and S2 Abdominal: NL Sounds; No Tenderness; No Distention, - - Bilateral flank tenderness Extremities: No Edema Neurological: Alert and Oriented x 3, NL Muscle Strength and Tone Result Diagrams: 11/26/17 06:04 11/26/17 06:04 Assess/Plan/Problems-Billing Assessment: Mr Drew is a 42yo M with PMH of sarcoidosis, GERD, hemorrhoids, PSA, IBS, asthma, migraines, who presented to ED with c/o back and inguinal/testicular pain, found to have sepsis secondary to pyelonephritis/prostatitis. - Patient Problems (1) Sepsis Comment: - Presentation compatible with sepsis with leukocytosis, fever, tachycardia. - Source is UTI (pyelo and prostatitis). (2) UTI (urinary tract infection) Comment: - Suspect pyelonephritis and prostatitis. - Continue Ceftriaxone and Gentamycin. - Awaiting Urology and ID input. - Follow up cultures. (3) GERD (gastroesophageal reflux disease) Comment: - Continue PPI. (4) Asthma Comment: - Continue Albuterol. (5) Depression Comment: - Continue Citalopram. (6) DVT prophylaxis Comment: - SCDs. (7) Full code status Status and Disposition: Inpatient.
[2017-11-26] MEDS: Nicotine GUM* 2 MG PO PRN (17:09)
[2017-11-26] MEDS: cefTRIAXone(*) 2 GM in NS 0.9% 100 ML* 100 ML IVPB SCH (17:56)
[2017-11-26] MEDS: Acetaminophen TAB* 325 MG PO PRN (22:29)
[2017-11-27] MEDS: NS 0.9% 1000 ML* 1,000 ML IV SCH ×3 (00:04→23:55)
[2017-11-27] MEDS: Morphine INJ* 4 MG/ML 1 ML SYRINGE (NEW SYRINGE VERSION) IV PRN ×2 (01:23→09:51)
[2017-11-27 07:46] LABS: Hematocrit 35 % (42-52); Hemoglobin 11.4 g/dl (14.0-18.0); Mean Corpuscular HGB Conc 33 g/dl (31-36); Mean Corpuscular Hemoglobin 28 pg (27-31); Mean Corpuscular Volume 85 fL (80-94); Mean Platelet Volume 9.5 um3 (7.4-10.4); Platelet Count 120 10^3/ul (150-450); Red Blood Count 4.11 10^6/ul (4.00-5.40); Red Cell Distribution Width 15 % (10.5-15); White Blood Count 7.5 10^3/ul (3.5-10.8)
[2017-11-27 07:49] LABS: ABS Basophils 0 10^3/ul (0-0.2); ABS Eosinophils 0.2 10^3/ul (0-0.6); ABS Lymphocytes 0.6 10^3/ul (1.0-4.8); ABS Monocytes 0.6 10^3/ul (0-0.8); ABS Nucleated RBC 0 10^3/ul; Eosinophil % 3.3 % (0-6); Lymphocyte % 7.7 % (25-47); Nucleated Red Blood Cells % 0
[2017-11-27] MEDS ORDERED: Gentamicin Trough Level 1 NOTE MISC FOLLOW UP ONE (08:00)
[2017-11-27 08:04] LABS: EGFR Non-African American 100.2 (>60)
[2017-11-27] MEDS: Mometasone/Formoter 200/5 MDI INH SCH ×2 (08:49→19:47)
[2017-11-27] MEDS: CMC: Pantoprazole TAB (NF) 40 MG TAB PO SCH ×2 (09:20→20:17)
[2017-11-27] MEDS: Citalopram TAB* 40 MG PO SCH (09:21)
[2017-11-27] MEDS: Nicotine PATCH 14 MG/24 HR* PATCH TRANSDERM SCH (09:21)
[2017-11-27] MEDS ORDERED: Gentamicin PEAK LEVEL* 1 NOTE MISC FOLLOW UP ONE (09:30)
[2017-11-27] MEDS: Nicotine GUM* 2 MG PO PRN (09:50)
[2017-11-27] MEDS: Polyethylene Glycol 3350* 17 GM PACKET PO SCH ×2 (09:54→20:17)
[2017-11-27] MEDS: Gentamicin ADULT (*) 160 MG in NS 0.9% 100 ML* 100 ML IVPB SCH (12:04)
--- NOTE | 2017-11-27 12:11 | CONS ---
DATE OF CONSULTATION: 11/27/2017. REQUESTING PHYSICIAN: Dr. Tinsley. CONSULTING SERVICE: Infectious Disease. REASON FOR CONSULTATION: Pyelonephritis, acute prostatitis. IMPRESSION: 1. Fever, low back pain, some right flank pain with dysuria. Urinalysis shows leukocyte esterase an d white cells. Culture were E. coli 50 to 75,000 colonies, sensitive to everything other than Tetrac ycline. There is a small right ureteral stone, just not obstructing. He is much improved with antib iotics. 2. Sarcoidosis. 3. Gastroesophageal reflux disease. RECOMMENDATIONS: Levaquin 500 mg by mouth to complete a 21 day course of antibiotics. Consider Flom ax for the ureteral stone and Urology follow-up. HISTORY OF PRESENT ILLNESS: A 42-year-old man who is healthy developed dysuria, then low back pain t he day before he came to the hospital which was the 9th. He has some low grade fevers and sweats. T he back pain became severe, so he came to the hospital. His temperature is 38.6. He was started of Ceftriaxone and Gentamicin. Urine studies were sent with results as above. Blood cultures were sent and are all negative. His white blood cell count was 17 on admission, is down to 7 today. His back pain is nearly resolved, though not totally. He has had no more dysuria. He initially did have dominique e left testicle pain without swelling and neither testicle was painful or swollen now. Testicular ul trasound was normal. He has not had urinary tract infections in the past. He is not aware of past k idney stones. PAST MEDICAL HISTORY: Sarcoidosis, gastroesophageal reflux disease, hemorrhoids, history of polysubs tance abuse, irritable bowel syndrome, asthma, migraine headaches. MEDICATIONS: 1. Ceftriaxone 1 gm a day. 2. Tylenol. 3. Citalopram. 4. Gentamicin. 5. Nicotine gum and inhaler with patch. 6. Zofran. 7. Pantoprazole. ALLERGIES: PENICILLIN CAUSED HIVES, no trouble with Ceftriaxone. FAMILY HISTORY: Father's side with prostate cancer and diabetes. Mother's side, no medical problems that he knows of. SOCIAL HISTORY: He lives in [place]. He works in sounds like property management. He is a smoker. No alcohol or injection drugs. REVIEW OF SYSTEMS: All negative except as noted above in the history of present illness to 14 point review of systems. PHYSICAL EXAM: General: He is awake and not in distress. Vital Signs: Temperature 37, heart rate 7 0, respiratory rate 20, blood pressure 135/80, oxygen saturation 94 percent on room air. Neurologic: He is oriented times three. Follows all commands. HEENT: There is no conjunctival hemorrhage. Or opharynx without lesions. Neck: Supple without mass. Heart: Regular rate and rhythm without murmu rs, rubs, or gallops. Abdomen: Soft, nontender, nondistended. There are bowel sounds present. Ski n: There is no rash or splinter hemorrhage. Musculoskeletal: There is right flank tenderness to pal pation. There is no spine tenderness or left flank tenderness to palpation. Genitourinary: There i s no testicular tenderness or edema. LABORATORY DATA: White blood cell count 7, hemoglobin 11, platelets 120, up from 115, creatinine 0.8 , CRP 186 on admission. Please see impressions and recommendations outlined above which I have discussed with Dr. Tinsley. Thank you for asking me to see Mr. Drew in consultation. [id number]/[facility] #: [id number]
[2017-11-27] MEDS: Morphine VIAL* 4 MG/ML VIAL (1 ml vial) IV PRN ×6 (13:04→22:29)
--- NOTE | 2017-11-27 16:46 | PN ---
Subjective Date of Service: 11/27/17 Interval History: HOSPITALIST PROGRESS NOTE Patient seen and examined at bedside. Care reviewed and d/w Germain Barton RN. Initially patient wanted to be discharged, but as the day went by, he still experienced significant back pain. Dysuria is less intense. He doesn't drink a lot of fluids at work because he has to hold his urine for long periods of time. Family History: Unchanged from Admission Social History: Unchanged from Admission Past Medical History: Unchanged from Admission Objective Active Medications: Acetaminophen (Tylenol Tab*) 650 mg PO Q4H PRN PRN Reason: FEVER/PAIN Last Admin: 11/26/17 22:29 Dose: 650 mg Al Hydrox/Mg Hydrox/Simethicone (Maalox Plus*) 30 ml PO Q6H PRN PRN Reason: INDIGESTION Albuterol (Ventolin 2.5 Mg/3 Ml Neb.Clarita*) 2.5 mg INH RT.[id number] AWAKE PRN PRN Reason: sob/wheezing Citalopram Hydrobromide (Celexa Tab*) 40 mg PO DAILY [facility] Last Admin: 11/27/17 09:21 Dose: 40 mg Device (Nicotine Mouth Piece*) 1 each INH .USE WITH NICOTROL PRN PRN Reason: CRAVING Last Admin: 11/26/17 09:32 Dose: 1 each Ceftriaxone Sodium 2 gm/ (Sodium Chloride) 100 mls @ 200 mls/hr IVPB Q24H [facility] Last Admin: 11/26/17 17:56 Dose: 200 mls/hr Sodium Chloride (Ns 0.9% 1000 Ml*) 1,000 mls @ 150 mls/hr IV PER RATE [facility] Last Admin: 11/27/17 00:04 Dose: 150 mls/hr Lorazepam (Ativan Tab(*)) 1 mg PO Q8H PRN PRN Reason: ANXIETY Last Admin: 11/26/17 17:08 Dose: 1 mg Mometasone Furoate/Formoterol Fumar (Dulera 200/5 Mdi*) 2 puff INH BID [facility] Last Admin: 11/27/17 08:49 Dose: 2 puff Morphine Sulfate (Morphine Vial*) 2 mg IV Q1H PRN PRN Reason: PAIN - SEVERE Last Admin: 11/27/17 14:27 Dose: 2 mg Nicotine (Nicotine Inhaler*) 10 mg INH Q2H PRN PRN Reason: CRAVING Last Admin: 11/26/17 09:33 Dose: 10 mg Nicotine (Nicotine Patch 14 Mg/24 Hr*) 1 patch TRANSDERM DAILY [facility] Last Admin: 11/27/17 09:21 Dose: 1 patch Nicotine Polacrilex (Nicotine Gum*) 2 mg PO Q2H PRN PRN Reason: CRAVING Last Admin: 11/27/17 09:50 Dose: 2 mg Ondansetron HCl (Zofran Inj*) 4 mg IV Q4H PRN PRN Reason: NAUSEA/VOMITING Oxycodone/Acetaminophen (Percocet 5/325 Tab*) 2 tab PO Q4H PRN PRN Reason: Pain Last Admin: 11/26/17 03:14 Dose: 2 tab Pantoprazole Sodium (Protonix Tab (Nf)) 40 mg PO BID [facility] Last Admin: 11/27/17 09:20 Dose: 40 mg Polyethylene Glycol/Electrolytes (Miralax*) 17 gm PO 0800,2100 [facility] Last Admin: 11/27/17 09:54 Dose: 17 gm Vital Signs - 8 hr 11/27/17 11/27/17 11/27/17 08:50 09:51 10:50 Temperature Pulse Rate 65 Respiratory 18 20 20 Rate Blood Pressure (mmHg) O2 Sat by Pulse 98 Oximetry 11/27/17 11/27/17 11/27/17 11:10 13:04 14:05 Temperature 98.7 F Pulse Rate 72 Respiratory 16 24 20 Rate Blood Pressure 140/93 (mmHg) O2 Sat by Pulse 99 Oximetry 11/27/17 11/27/17 11/27/17 14:27 14:35 15:20 Temperature 99.5 F Pulse Rate 88 Respiratory 22 16 18 Rate Blood Pressure 102/59 (mmHg) O2 Sat by Pulse 98 Oximetry Oxygen Devices in Use Now: None Appearance: Pleasant gentleman sitting up in bed in [facility]. Eyes: No Scleral Icterus Ears/Nose/Mouth/Throat: Mucous Membranes Moist Neck: Trachea Midline Respiratory: Symmetrical Chest Expansion and Respiratory Effort, Clear to Auscultation Cardiovascular: RRR - Normal S1 and S2 Neurological: Alert and Oriented x 3, NL Muscle Strength and Tone Result Diagrams: 11/27/17 07:30 11/27/17 07:30 Assess/Plan/Problems-Billing Assessment: Mr Drew is a 42yo M with PMH of sarcoidosis, GERD, hemorrhoids, PSA, IBS, asthma, migraines, who presented to ED with c/o back and inguinal/testicular pain, found to have sepsis secondary to pyelonephritis/prostatitis. - Patient Problems (1) Sepsis Comment: - Presentation compatible with sepsis with leukocytosis, fever, tachycardia. - Source is UTI (pyelo and prostatitis). (2) UTI (urinary tract infection) Comment: - Suspect pyelonephritis and prostatitis. - UCx grew E. coli. - ID input appreciated - will continue Ceftriaxone while in the hospital and switch to Levofloxacin on discharge to complete 21 days of treatment. (3) GERD (gastroesophageal reflux disease) Comment: - Continue PPI. (4) Asthma Comment: - Continue Albuterol. (5) Depression Comment: - Continue Citalopram. (6) DVT prophylaxis Comment: - SCDs. (7) Full code status Status and Disposition: Inpatient. Anticipate d/c in AM if feeling improved.
[2017-11-27] MEDS: cefTRIAXone(*) 2 GM in NS 0.9% 100 ML* 100 ML IVPB SCH (18:24)
[2017-11-28] MEDS: Morphine VIAL* 4 MG/ML VIAL (1 ml vial) IV PRN ×3 (01:37→07:46)
[2017-11-28] MEDS: Acetaminophen TAB* 325 MG PO PRN (01:40)
[2017-11-28] MEDS: Mometasone/Formoter 200/5 MDI INH SCH (07:35)
[2017-11-28] MEDS: Polyethylene Glycol 3350* 17 GM PACKET PO SCH (07:56)
[2017-11-28] MEDS: Citalopram TAB* 40 MG PO SCH (07:57)
[2017-11-28] MEDS: CMC: Pantoprazole TAB (NF) 40 MG TAB PO SCH (07:57)
[2017-11-28] MEDS: Nicotine PATCH 14 MG/24 HR* PATCH TRANSDERM SCH (07:59)
[2017-11-28 11:07] VITALS: BP 113/71
--- NOTE | 2017-11-29 22:29 | DS ---
CC: Dr. Ansari; Dr. Foss; Dr. Grady DISCHARGE SUMMARY: DATE OF ADMISSION: 11/25/17 DATE OF DISCHARGE: 11/28/17 PRIMARY CARE PROVIDER: Dr. Ansari. CONSULTING INFECTIOUS DISEASE SPECIALIST: Dr. Foss. UROLOGIST: Dr. Grady. DISCHARGE DIAGNOSES: 1. Sepsis. 2. Escherichia coli pyelonephritis and prostatitis, present on admission. 3. Thrombocytopenia. 4. Tobacco abuse. SECONDARY DIAGNOSES: 1. Sarcoidosis. 2. Gastroesophageal reflux disease. 3. Hemorrhoids. 4. Prior history of polysubstance abuse. 5. Irritable bowel. 6. Asthma. 7. Migraine. MEDICATION LIST: 1. Omeprazole 20 mg p.o. b.i.d. 2. Advair 500/50 one puff inhale b.i.d. 3. Dicyclomine 40 mg p.o. b.i.d. 4. Citalopram 40 mg p.o. daily. 5. Lorazepam 1 mg p.o. q.8 hours p.r.n. anxiety. 6. Vitamin D3 tablets. New Medications: 1. Oxycodone 5 mg p.o. q.6 hours p.r.n. pain, MDD 4 tablets. 2. Levofloxacin 500 mg p.o. daily for 21 more days. 3. Acetaminophen 650 mg p.o. q.4 hours p.r.n. pain or fever. HOSPITAL COURSE: Mr. Drew is a 42-year-old male with past medical history as stated above that pre sented to the emergency room with complaints of severe bilateral flank pain and scrotal pain. The da y prior to admission the patient had complaints of bilateral groin and flank pain, dysuria, frequency , urgency followed by fever 101.4. For more details about his presentation, I refer you to his histo ry and physical. In the emergency room, the patient had a CT of the abdomen and pelvis, nonobstructing 4 mm calcificat ion in the right collecting system without signs of obstructive uropathy. No evidence of inflammator y change of the gastrointestinal tract. He also had a testicular ultrasound that showed no acute fin dings. No evidence of testicular torsion with tiny left testicular calcification. The patient's presentation was compatible with sepsis with fever, tachycardia, and leukocytosis. The patient was admitted to the medical floor for further evaluation and treatment. The impression was the patient likely had pyelonephritis and prostatitis and he was started on ceftri axone and gentamicin empirically. Urine culture grew E. coli and blood cultures were negative. His PSA was elevated at 32. Of note, c hlamydia and gonococcal cultures were checked and the results are pending at the time of this dictati on. The case was discussed with urology who recommended antibiotic therapy and followup as outpatient. The patient was also seen in consultation by infectious disease (Dr. Foss) and his recommendation was to complete a 20-day course of levofloxacin. The patient became afebrile, had improvement of his leukocytosis and progressive improvement of his s ymptoms. Of note, due the fact that patient states that he works outside, so he does not drink a lot of fluids , so he does not have to go to the bathroom a lot and even when he has to go he tends to hold it in. He was advised that this is a risk factor for infection and especially now that he already had one e pisode, he should increase his fluid intake and try not to retain urine. The patient is medically stable for discharge at time to follow up with Dr. Ansari, Dr. Foss, and Dr. Grady as outpatient. PHYSICAL EXAMINATION: Vital Signs: Temperature 97.8, heart rate is 86, respiratory rate 16, oxygen saturation 96% on room air, blood pressure is 113/71. General: The patient is a pleasant, middle-age d gentleman, who is sitting up in bed in no acute distress. CVS: Normal S1, S2. Regular rate and r hythm. Chest: Breath sounds present bilaterally with no added sounds. Abdomen: Soft, nontender, no ndistended. Bowel sounds present. CVA tenderness is resolved. Neuro: He is alert and oriented x3, able to move all 4 extremities. DIET: Regular diet. ACTIVITIES: As tolerated. DISPOSITION: To home. STATUS IN THE HOSPITAL: Inpatient. Please keep in mind this is a summarized version of this patient's hospital stay. If you need more in formation, please feel free to call me at [phone] or please obtain full medical records. The patient states that he is not ready to quit smoking at this time. TIME SPENT: Approximately 45 minutes was spent to complete this discharge. [id number]/[id number] #: [id number]
== END 2017-11-28 11:50 | disposition home or self-care (01) | DRG 720 ==
LOC: ED 14:56 → MEDTELE 17:51 → MED 11-27 01:14
PROVIDERS: ADMIT Internal Medicine; ATTEND Internal Medicine
DX: A41.9 Sepsis, unspecified organism (principal); N12 Tubulo-interstitial nephritis, not specified as acute or chronic; N41.0 Acute prostatitis; N20.1 Calculus of ureter; B96.20 Unspecified Escherichia coli [E. coli] as the cause of diseases classified elsewhere; D69.6 Thrombocytopenia, unspecified; F17.210 Nicotine dependence, cigarettes, uncomplicated; D86.9 Sarcoidosis, unspecified; K21.9 Gastro-esophageal reflux disease without esophagitis; K64.9 Unspecified hemorrhoids; J45.909 Unspecified asthma, uncomplicated; N20.0 Calculus of kidney; G43.909 Migraine, unspecified, not intractable, without status migrainosus; K58.1 Irritable bowel syndrome with constipation; G89.29 Other chronic pain; F32.9 Major depressive disorder, single episode, unspecified; Z23 Encounter for immunization; Z80.42 Family history of malignant neoplasm of prostate; Z83.3 Family history of diabetes mellitus; Z88.0 Allergy status to penicillin; Z82.49 Family history of ischemic heart disease and other diseases of the circulatory system
CPT/HCPCS: 36415; 71045; 74176; 76870; 80048; 80053; 80170; 81003; 81015; 83605; 84153; 84484; 85025; 85610; 85652; 85730; 86140; 87040; 87077; 87086; 87186; 90686; 94640; 99284; 99406; A9270-GY; G0103; J0696; J0744; J1580; J1885; J2270; J2405